=== PATIENT | female | born 1945 | race Caucasian/White ===

== ENCOUNTER 2017-11-16 07:21 | Emergency (ER) | payer MEDICARE ==
[~2017-11-16] VITALS: Ht 152.4 cm; Wt 71.5 kg
[~2017-11-16 07:21] MED LIST: ASPI81 PO; ATOR20TA42 PO; GLUCTAB PO; HYDR-3533 PO; PROBCAP4 PO; VITA100T15 PO; ZIAC5TAB PO
[2017-11-16 07:25] VITALS: BP 113/71; PULSE 83; RESP 16; TEMP 99.6; O2SAT 95
[2017-11-16] MEDS ORDERED: CYANPOW PO (07:40)
[2017-11-16] MEDS ORDERED: BENZ100 PO (07:40)
[2017-11-16] MEDS ORDERED: ASPI81CH7 CHEW (07:40)
[2017-11-16] MEDS ORDERED: SYNT25TA PO (07:40)
[2017-11-16] MEDS ORDERED: PRED20 PO (07:40)
[2017-11-16] MEDS ORDERED: ATOR40TA16 PO (07:40)
[2017-11-16] MEDS ORDERED: GLUCTAB PO (07:40)
[2017-11-16] MEDS ORDERED: [UNRECOGNIZED DRUG - OTHER] (07:40)
[2017-11-16] MEDS ORDERED: BISO5TAB2 PO (07:40)
[2017-11-16] MEDS ORDERED: TUSSSUS2 PO (08:19)
--- NOTE | 2017-11-16 08:23 | PD ---
HPI . cough Chief Complaint: Respiratory Symptoms Time Seen by Provider: 07:33 Travel History International Travel<30 days: No Contact w/Intl Traveler<30days: No Traveled to known affect area: No History of Present Illness HPI Patient is 72-year-old female who presents with a cough. Patient reports that the onset began Thursday afternoon and has continued all the way through Thursday night. On Thursday the patient went to an urgent care center where she tested negative for flu as well as strep. She left with a diagnosis of bronchitis and was given benzonatate and prednisone. She reports no change in diet nor any food triggers. Has had to sleep with 3 pillows behind her in order to avoid coughing. The bouts of coughing has stayed the same and not increased in severity. She describes the character of the cough as both dry and wet, with production of yellow mucousy sputum. She reports no aggravating features. She reports no relieving features. Took [id number] Mucinex and Tessalon Perles which were ineffective. Similar symptoms include a sensation of feeling feverish, as well as stress incontinence (peeing). PFSH Past Medical History Hx Anticoagulant Therapy: No Arthritis: Yes Asthma: No Anxiety: No Depression: No Cancer: No Cardiovascular Problems: Yes High Cholesterol: Yes Chest Pain: Yes (THIS ADMISSION ) COPD: No Diabetes: Yes Patient Takes Glucophage: Yes Diminished Hearing: No Diverticulitis: Yes Gastrointestinal Disorders: Yes (HX DIVERTICULITIS ) Genitourinary: No Hypertension: Yes Immune Disorder: No Implanted Vascular Access Dvce: No Musculoskeletal: Yes (OSTEOPOROSIS) Neurologic: No Psychiatric: No Respiratory: No Immunizations Current: Yes Tetanus Vaccination: Unknown PNEUMOCCOCAL Vaccine (Year): 2007 Menopausal: Yes Past Surgical History Cholecystectomy: Yes Genitourinary Surgery: Yes (BLADDER LIFT) Gynecologic Surgery: Yes (HYSTERECTOMY ) Hysterectomy: Yes Tonsillectomy: Yes Other Surgery: Yes Social History Alcohol Use: No Tobacco Use: No Substance Use: No Allergies-Medications (Allergen,Severity, Reaction): Coded Allergies: Sulfa (Sulfonamide Antibiotics) (Unverified Allergy, Severe, HIVES AND SWELLING, 11/16/17) penicillin G (Unverified Allergy, Intermediate, Swelling, 11/16/17) clarithromycin (Verified Allergy, Unknown, 11/16/17) Reported Meds & Prescriptions Reported Meds & Active Scripts Active Tussionex Pennkinetic Ext 12 HR Liq (Hydrocodone-Chlorpheniramine 12 HR Liq) 10- 8 Mg/5 Ml Susp 5 Ml PO Q12H PRN Reported Glucophage XR (Metformin HCl) 500 Mg Maximilian 1,000 Mg PO BID With evening meal [Cyanocobalamin] 100 Mg PO DAILY Bisoprolol-Hydrochlorothiazide 5-6.25 Mg Tab 1 Tab PO DAILY Atorvastatin (Atorvastatin Calcium) 40 Mg Tab 40 Mg PO HS Aspirin Children's (Aspirin) 81 Mg Chew 81 Mg CHEW DAILY Prednisone 20 Mg Tab 40 Mg PO DAILY Take 40 mg (2 tablets) daily for 5 days [Musenex] Synthroid (Levothyroxine Sodium) 25 Mcg Tab 25 Mcg PO DAILY Review of Systems Except as stated in HPI: all other systems reviewed are Neg General / Constitutional: Positive: Fever Cardiovascular: No: Edema Respiratory: Positive: Cough, Sneezing, No: Night Sweats Genitourinary: Positive: Incontinence Physical Exam Narrative GENERAL: Awake and alert and in no acute distress. SKIN: Warm and dry. Good color and turgor. HEAD: Normocephalic/atraumatic. EYES: Pupils are equal. Extraocular movements are intact. ENT: clear nasal drainage. Throat without erythema, exudate, tonsillar enlargement. NECK: Normal range of motion. No adenopathy. CARDIOVASCULAR: Regular rate and rhythm. RESPIRATORY: Nonlabored respirations. Lungs clear with full air movement throughout. MUSCULOSKELETAL: Atraumatic. NEUROLOGICAL: Nonfocal. PSYCHIATRIC: Appropriate mood and affect. Data Data Last Documented VS Vital Signs Date Time Temp Pulse Resp B/P (MAP) Pulse Ox O2 Delivery O2 Flow Rate FiO2 11/16/17 07:31 16 95 Room Air 11/16/17 07:25 99.6 83 113/71 (85) Orders Orders Ed Discharge Order (11/16/17 08:19) MDM Medical Decision Making Medical Screen Exam Complete: Yes Emergency Medical Condition: Yes Differential Diagnosis Differential diagnosis includes but is not limited to viral respiratory illness , bronchitis, pneumonia, allergies, CHF, asthma/COPD. Narrative Course Patient presents complaining with a dry cough. The cough is worse at night. She has not had any worrisome signs or symptoms such as difficulty breathing, chest pain, fever. Her exam is unremarkable. She will be treated symptomatically. She is to continue her prednisone and Mucinex, stop the Tessalon Perles and replace them with Tussionex. Diagnosis Primary Impression: Cough Patient Instructions: General Instructions, Upper Respiratory Infection (DC) Scripts Hydrocodone-Chlorpheniramine 12 HR Liq (Tussionex Pennkinetic Ext 12 HR Liq) 10- 8 Mg/5 Ml Susp 5 ML PO Q12H Y for COUGH AND/OR COLD SYMPTOMS, #90 ML 0 Refills Prov: Patt Miranda MD 11/16/17 Disposition: 01 DISCHARGE HOME Condition: Stable Patt Miranda MD Nov 16, 2017 08:23
[2017-11-17] MEDS ORDERED: B-12100T PO (11:09)
== END 2017-11-16 08:25 | disposition home or self-care (01) ==
LOC: PHED 07:21
DX: R05 Cough (principal); E78.00 Pure hypercholesterolemia, unspecified; E11.9 Type 2 diabetes mellitus without complications; I10 Essential (primary) hypertension; M81.0 Age-related osteoporosis without current pathological fracture; Z88.0 Allergy status to penicillin; Z88.2 Allergy status to sulfonamides
CPT/HCPCS: 99283